=== PATIENT | male | born 1950 | race Caucasian/White ===

== ENCOUNTER 2023-05-22 06:52 | Day surgery (SDC) | payer MEDICARE, SELFPAY ==
[2023-05-18 12:54] VITALS: BMI 25.0
--- NOTE | 2023-05-21 11:42 | P.CONAN_ITS ---
Documented by User: Margie Way NP 05/21/23 11:42 HPI - Anesthesia Eval Consult details Narrative: 73yo M for Colonoscopy [facility] Past Medical History Medical History (Updated 05/22/23 @ 07:20 by Rita Newton RN) History of eye disorder Prostate cancer Irregular heartbeat Osteoarthritis Elevated cholesterol Surgical History Surgical History (Updated 05/18/23 @ 12:58 by Guillermina Del Rio, MAURISIO) History of surgery on arm Hx of hernia repair Hx of prostatectomy H/O colonoscopy Social History Social History Patient Tobacco Use Status: Former Tobacco user Use of substances other than those prescribed or required for medical reasons: No Are you DNR?: No Advance Directives: No Advance Directives Information Provided: Yes Meds Allergies Allergy/AdvReac Type Severity Reaction Status Date / Time No Known Allergies Allergy Verified 05/18/23 12:52 Home Medications ?Medication ?Instructions ?Recorded ?Confirmed ?Last Taken ?Type aspirin 81 mg tablet,delayed 81 mg PO DAILY 05/18/23 05/18/23 Unknown History release atenolol 25 mg tablet 25 mg PO DAILY 05/18/23 05/18/23 05/22/23 History cholecalciferol (vitamin D3) 25 25 mcg PO DAILY 05/18/23 05/18/23 Unknown History mcg (1,000 unit) capsule (Vitamin D3) coenzyme Q10 100 mg capsule (Co 100 mg PO DAILY 05/18/23 05/18/23 Unknown History Q-10) multivitamin 1 tab PO QAM 05/18/23 05/18/23 Unknown History simvastatin 40 mg tablet 40 mg PO BEDTIME 05/18/23 05/18/23 Unknown History Exam Height,Weight and Vital Signs: Height 5 ft 9.5 in Weight 78.018 kg Assessment and Plan Assessment Anesthesia Assessment: Chart Reviewed Documented by User: Eliseo No MD 05/22/23 08:22 [facility] Past Medical History Medical History (Updated 05/22/23 @ 07:20 by Rita Lamar, RN) History of eye disorder Prostate cancer Irregular heartbeat Osteoarthritis Elevated cholesterol Family History Family history of problems with anesthesia: No Surgical History Surgical History (Updated 05/18/23 @ 12:58 by Guillermina Del Rio RN) History of surgery on arm Hx of hernia repair Hx of prostatectomy H/O colonoscopy History of Problems with Anesthesia: No Social History Social History Patient Tobacco Use Status: Former Tobacco user Use of substances other than those prescribed or required for medical reasons: No Are you DNR?: No Advance Directives: No Advance Directives Information Provided: Yes Meds Allergies Allergy/AdvReac Type Severity Reaction Status Date / Time No Known Allergies Allergy Verified 05/18/23 12:52 Home Medications ?Medication ?Instructions ?Recorded ?Confirmed ?Last Taken ?Type aspirin 81 mg tablet,delayed 81 mg PO DAILY 05/18/23 05/18/23 Unknown History release atenolol 25 mg tablet 25 mg PO DAILY 05/18/23 05/18/23 05/22/23 History cholecalciferol (vitamin D3) 25 25 mcg PO DAILY 05/18/23 05/18/23 Unknown History mcg (1,000 unit) capsule (Vitamin D3) coenzyme Q10 100 mg capsule (Co 100 mg PO DAILY 05/18/23 05/18/23 Unknown History Q-10) multivitamin 1 tab PO QAM 05/18/23 05/18/23 Unknown History simvastatin 40 mg tablet 40 mg PO BEDTIME 05/18/23 05/18/23 Unknown History Exam Airway Mallampati Class: II TM Dist: >3cm Neck ROM: Full Loose/Missing/Broken Teeth: No Heart: [id number]+[id number] Lungs: cta b/l Assessment and Plan Assessment Anesthesia Assessment: Anesthesia Plan Discussed Final Anesthetic Review Family History of Problems with Anesthesia: No History of Problems with Anesthesia: No NPO: Yes ASA Class: II Final Preanesthetic Review: No Changes in Pt Med Stat, Meds/Allgs Chart Reviewed, Consent Obtained/Reviewed and Anes Risks/Benef Reviewed Patient Risk: Intermediate Procedure Risk: Low Assessment/Block/Sedation in SS: Assess/Block/Sedation-SS Anesthetic Plan Anesthetic Plan: MAC: Disposition: Standard PACU
[2023-05-22 07:21] VITALS: BMI 26.5
[2023-05-22 07:26] VITALS: BP 145/85; PULSE 70; RESP 16; TEMP 36.4; O2SAT 97
[2023-05-22] MEDS: Lactated Ringers 1,000 ML 100 ML IVCONT (07:37)
--- NOTE | 2023-05-22 08:30 | MHC.SHP ---
Pre-Procedural Eval Section A - 24 Hr Update-Section A only Date of Service: 05/22/23 Section B - Complete if H&P > 30 days Chief Complaint: screening Details of Present Illness: see H&P no changes Relevant Family History (Specify if Yes): No Relevant Social History: None Present Medications: see Short Stay Collaborative assessment Medical History: No relevant PMH History of Previous Operations: No relevant previous surgery Allergies: Allergies Allergy/AdvReac Type Severity Reaction Status Date / Time No Known Allergies Allergy Verified 05/18/23 12:52 Review of Systems Sugical H&P ROS: Negative: Constitution, Cardiovascular, Respiratory, Neurological, Psychiatric, Hem-Onc, Allergic/Immunologic, Gastrointestinal, Genitourinary, Musculoskeletal, Integumentary, Endocrine and Eyes/Ears/Nose/Throat Exam Surgical H&P Exam: Normal: HEENT, Normal: Heart, Normal: Lungs, Normal: Extremities, Normal: Abdomen, Normal: Skin and Normal: Neurological Plan Diagnosis/Plan: Unchanged I have reviewed the history and physical and performed a pertinent physical examination on my patient. No changes have occurred unless specified. Time Spent With Patient Time: Total time managing care of this patient today ____ minutes.
[2023-05-22 09:08] VITALS: BP 113/64; PULSE 69; RESP 16; TEMP 36.1; O2SAT 98
[2023-05-22 09:23] VITALS: BP 112/67; PULSE 65; RESP 20; TEMP 36.3; O2SAT 97
--- NOTE | 2023-05-22 20:39 | OP_ITS ---
DATE OF SERVICE: 05/22/2023 SURGEON: Ethan Pickard MD INDICATIONS: Colon cancer screening. PREOPERATIVE DIAGNOSIS: POSTOPERATIVE DIAGNOSIS: PROCEDURE PERFORMED: Colonoscopy to the terminal ileum with snare polypectomy and biopsy. ESTIMATED BLOOD LOSS: COMPLICATIONS: ANESTHESIA: Monitored anesthesia care. ASSISTANTS: SPECIMENS: DESCRIPTION OF PROCEDURE: A history and physical performed, the risks and benefits of the procedure were explained to the patient. Informed consent was obtained. The patient placed in the left lateral decubitus position. A digital rectal exam was performed and was found to be normal. The Olympus pediatric video colonoscope was introduced into the rectum and advanced to the cecum. The cecum was identified by transillumination, palpation, and identification of ileocecal valve. Examination was performed. The scope was removed. He tolerated the procedure well and was returned to the recovery room in stable condition. FINDINGS: The terminal ileum was examined and appeared normal. The visualized colonic mucosa was within normal limits without evidence of masses or ulcers. A single polyp was identified and removed with a snare. The polyp was recovered via suction. This was located at 50 cm from the anal verge. No other polyps were identified. There was moderate sigmoid diverticulosis. Retroflexed examination showed moderate-sized internal hemorrhoids. IMPRESSION: Colon polyp. RECOMMENDATION: Follow up the biopsy results. MD CHRISTINA Chiu/SIRENA / [id number]
== END 2023-05-22 10:10 | disposition home or self-care (01) ==
PROVIDERS: PCP Internal Medicine; Visit Provider Internal Medicine Gastroenterology
PROC: 0DJD8ZZ Inspection of Lower Intestinal Tract, Via Natural or Artificial Opening Endoscopic (ICD-10-PCS; CPT 45378; principal; 2023-05-22 08:40)
DX: Z12.11 Encounter for screening for malignant neoplasm of colon (principal); Z86.010 Personal history of colon polyps; K63.5 Polyp of colon; K57.30 Diverticulosis of large intestine without perforation or abscess without bleeding; K64.8 Other hemorrhoids; I49.9 Cardiac arrhythmia, unspecified; E78.5 Hyperlipidemia, unspecified; H57.89 Other specified disorders of eye and adnexa; Z85.46 Personal history of malignant neoplasm of prostate; Z87.891 Personal history of nicotine dependence; Z79.899 Other long term (current) drug therapy
CPT/HCPCS: 45385; 45380; 88305; J0461; J2704

== ENCOUNTER 2023-07-20 11:02 | Emergency (ER) | payer MEDICARE, SELFPAY ==
[2023-07-20 11:07] VITALS: BP 174/87; PULSE 52; RESP 16; TEMP 36.2; O2SAT 97; BMI 26.5
[2023-07-20 11:45] LABS: MANUAL DIFF FLAG NO
[2023-07-20 11:54] LABS: Basophils Percent Auto 0.6 % (0-2); Eosinophils Absolute Auto 0.1 X10*3/uL (0.0-0.4); Eosinophils Percent Auto 1.8 % (0-4); Hemoglobin 13.5 g/dl (14.0-18.0); Imm Gran Abs Auto 0.02 X10*3/uL (0.00-0.03); Imm Gran Pct Auto 0.4 % (0.0-0.4); Lymphocytes Absolute Auto 0.9 X10*3/uL (1.2-4.9); Mean Corpuscular HGB Conc 33.8 g/dl (31.0-36.0); Mean Corpuscular Hemoglobin 31.7 pg (27.0-33.0); Mean Corpuscular Volume 93.9 fL (80.0-98.0); Mean Platelet Volume 9.3 fL (9.4-12.4); Monocytes Absolute Auto 0.6 X10*3/uL (0.1-1.2); Monocytes Percent Auto 11.5 % (2-11); Neutrophils Absolute Auto 3.5 x10*3/uL (2.0-8.3); Neutrophils Percent Auto 68.7 % (45-73); Platelet Count 210 X10*3/uL (160-400); Red Blood Count 4.26 X10*6/uL (4.60-5.80); Red Cell Distribution Width 12.6 % (11.0-16.0); White Blood Count 5.1 X10*3/uL (4.8-10.8)
[2023-07-20 12:02] LABS: Alanine Aminotransferase 23 U/L (0-40); Albumin Level 4.2 g/dL (3.5-5.0); Alkaline Phosphatase 54 U/L (39-117); Anion Gap 11 (12-20); Aspartate Amino Transferase 31 U/L (5-37); Bilirubin Total 0.6 mg/dL (0.0-1.0); Blood Urea Nitrogen 20 mg/dL (9-16); Calcium 9.6 mg/dL (8.4-10.2); Carbon Dioxide 30 mmol/L (22-29); Chloride 107 mmol/L (96-108); Creatinine Clr Calc Pharmacy 55.1; Estimated Glomerular Filt Rate > 60; Glucose Random 95 mg/dL (60-115); Sodium 144 mmol/L (135-145); Total Protein 6.8 g/dL (6.5-8.0)
[2023-07-20 17:35] VITALS: BP 186/93; PULSE 55; RESP 12; TEMP 36.6; O2SAT 98
--- NOTE | 2023-07-20 17:37 | ECG_ITS ---
Test Reason : TACHYCARDIA Blood Pressure : / mmHG Vent. Rate : 049 BPM Atrial Rate : 049 BPM P-R Int : 156 ms QRS Dur : 122 ms QT Int : 410 ms P-R-T Axes : 037 -27 -13 degrees QTc Int : 370 ms Sinus bradycardia Left ventricular hypertrophy with QRS widening ( R in aVL , [place] product ) Abnormal ECG When compared with ECG of 17-AUG-2004 08:32, QRS duration has increased T wave amplitude has decreased in Anterior leads Referred By: Generic ED Physician Electronically Signed By:IZABELA FLEMING MD
--- NOTE | 2023-07-20 18:31 | ED_ITS ---
HPI - GI Bleed General Chief complaint: GI Bleed Stated complaint: rectal bleeding Time Seen by Provider: 07/20/23 17:42 Source: patient Mode of arrival: ambulatory Limitations: no limitations History of Present Illness ED Provider: marita WILLIAMSON Narrative: Patient has remote history of hemorrhoids had colonoscopy about 2 months ago which was negative except for benign polyp today had soft bowel movement followed by bright red blood no abdominal pain no history of similar bleed in the past not on any anticoagulation Related Data Home Medications ?Medication ?Instructions ?Recorded ?Confirmed aspirin 81 mg tablet,delayed 81 mg PO DAILY 05/18/23 05/18/23 release atenolol 25 mg tablet 25 mg PO DAILY 05/18/23 05/18/23 cholecalciferol (vitamin D3) 25 25 mcg PO DAILY 05/18/23 05/18/23 mcg (1,000 unit) capsule (Vitamin D3) coenzyme Q10 100 mg capsule (Co 100 mg PO DAILY 05/18/23 05/18/23 Q-10) multivitamin 1 tab PO QAM 05/18/23 05/18/23 simvastatin 40 mg tablet 40 mg PO BEDTIME 05/18/23 05/18/23 Previous Rx's ?Medication ?Instructions ?Recorded hydrocortisone acetate 25 mg 25 mg [place] BID #12 ea 07/20/23 rectal suppository (Anusol-HC) Allergies Allergy/AdvReac Type Severity Reaction Status Date / Time No Known Allergies Allergy Verified 07/20/23 11:08 Review of Systems 2 Review of Systems: Yes all other systems are reviewed and are negative PMFSH Past Medical History Medical History History of eye disorder Prostate cancer Irregular heartbeat Osteoarthritis Elevated cholesterol Surgical History History of surgery on arm Hx of hernia repair Hx of prostatectomy H/O colonoscopy Social History Social History Patient Tobacco Use Status: Former Tobacco user Smoked in Last 30 Days: No Use of substances other than those prescribed or required for medical reasons: No Advance Directives: No Advance Directives Information Provided: No Physical Exam 2 Vital Signs: Vital Signs: Last Vital Signs Temp 97.6 F 07/20/23 19:30 Pulse 55 07/20/23 19:30 Resp 16 07/20/23 19:30 BP 181/87 H 07/20/23 19:30 Pulse Ox 97 07/20/23 19:30 O2 Del Method Room Air 07/20/23 19:30 BMI result Body Mass Index 26.5 Appearance: Alert. Oriented X3. No acute distress. Eyes: PERRLA, No Nystagmus ENT: Pharynx normal. Oral Mucosa moist Neck: Normal inspection. Neck supple. CVS: Normal heart rate and rhythm. Pulses normal. Respiratory: No respiratory distress. Equal air entry bilateral, no wheezing/rales/rhonchi Abdomen: Soft and nontender. Bowel sounds are present, no mass palpable, no CVA tenderness rectal: Trace bright red blood guaiac positive hemorrhoid palpable Skin: Skin warm and dry. Normal skin color. Normal skin turgor. Extremities: No lower extremity edema. No calf tenderness Neuro: Oriented X 3. No motor deficit. Medical Decision Making Medical Decision Making [facility] Narrative: Patient with minor bright red blood per rectum no active bleed at this time serial H&H stable patient just had a colonoscopy 2 months ago which had only a small polyp. Will discharge patient home advised to follow with GI if bleeding continues and avoid straining Differential Diagnosis Differential Diagnoses: The differential diagnosis associated with the presentation includes Lab Data [facility] Lab Attestation statement: I reviewed the patient's lab results. 07/20/23 18:27 07/20/23 11:39 Labs: Lab Results 07/20/23 07/20/23 Range/Units 11:39 18:27 WBC 5.1 (4.8-10.8) X10*3/uL RBC 4.26 L (4.60-5.80) X10*6/uL Hgb 13.5 L 13.7 L (14.0-18.0) g/dl Hct 40.0 L 39.7 L (42.0-52.0) % MCV 93.9 (80.0-98.0) fL MCH 31.7 (27.0-33.0) pg MCHC 33.8 (31.0-36.0) g/dl RDW 12.6 (11.0-16.0) % Plt Count 210 (160-400) X10*3/uL MPV 9.3 L (9.4-12.4) fL Immature Gran % (Auto) 0.4 (0.0-0.4) % Neut % (Auto) 68.7 (45-73) % Lymph % (Auto) 17.0 L (20-40) % [place] % (Auto) 11.5 H (2-11) % Eos % (Auto) 1.8 (0-4) % Baso % (Auto) 0.6 (0-2) % Lymph # (Auto) 0.9 L (1.2-4.9) X10*3/uL [place] # (Auto) 0.6 (0.1-1.2) X10*3/uL Eos # (Auto) 0.1 (0.0-0.4) X10*3/uL Baso # (Auto) 0.0 (0.0-0.2) X10*3/uL Abs Immat Gran (auto) 0.02 (0.00-0.03) X10*3/uL Absolute Neuts (auto) 3.5 (2.0-8.3) x10*3/uL Absolute Nucleated RBC 0.000 (0.0-0.012) X10*3/uL Nucleated RBC % (auto) 0.0 (0.0-0.2) /100WBC PT 12.2 (11.1-13.3) SEC INR 1.0 (0.9-1.1) Sodium 144 (135-145) mmol/L Potassium 4.0 (3.3-5.1) mmol/L Chloride 107 (96-108) mmol/L Carbon Dioxide 30 H (22-29) mmol/L Anion Gap 11 L (12-20) BUN 20 H (9-16) mg/dL Creatinine 1.12 (0.5-1.4) mg/dL Estim Creat Clear Calc 55.1 Estimated GFR > 60 Random Glucose 95 (60-115) mg/dL Calcium 9.6 (8.4-10.2) mg/dL Total Bilirubin 0.6 (0.0-1.0) mg/dL AST 31 (5-37) U/L ALT 23 (0-40) U/L Alkaline Phosphatase 54 (39-117) U/L Total Protein 6.8 (6.5-8.0) g/dL Albumin 4.2 (3.5-5.0) g/dL Discharge Plan Discharge Clinical Impression: Lower gastrointestinal hemorrhage Patient Disposition: Home, Self-Care Instructions: Gastrointestinal Bleeding (ED) Additional Instructions: Likely you have hemorrhoidal bleed which seems to be stable Do not over exert when moving your bowels Anusol suppository twice daily until heals completely Report to the ER if worsening of the bleed Follow up with GI Prescriptions: New hydrocortisone acetate [Anusol-HC] 25 mg suppository 25 mg [place] BID Qty: 12 0RF No Action multivitamin Tablet 1 tab PO QAM atenolol 25 mg tablet 25 mg PO DAILY aspirin [Aspir-81] 81 mg Tablet,Delayed Release (Dr/Ec) 81 mg PO DAILY simvastatin 40 mg tablet 40 mg PO BEDTIME cholecalciferol (vitamin D3) [Vitamin D3] 25 mcg (1,000 unit) Capsule 25 mcg PO DAILY coenzyme Q10 [Co Q-10] 100 mg Capsule 100 mg PO DAILY Interventions: ED Discharge Assessment Last Done: 07/20/23 19:30 Discharge Date/Time: 07/20/23 19:31 Print Language: Czech
[2023-07-20 18:32] LABS: Hematocrit 39.7 % (42.0-52.0); Hemoglobin 13.7 g/dl (14.0-18.0)
[2023-07-20 18:42] LABS: Prothrombin Time 12.2 SEC (11.1-13.3)
[2023-07-20 19:30] VITALS: BP 181/87; PULSE 55; RESP 16; TEMP 36.4; O2SAT 97
== END 2023-07-20 19:31 | disposition home or self-care (01) ==
PROVIDERS: Emergency Provider Internal Medicine; PCP Internal Medicine
DX: K92.2 Gastrointestinal hemorrhage, unspecified (principal); R00.0 Tachycardia, unspecified; R00.1 Bradycardia, unspecified; Z87.891 Personal history of nicotine dependence; Z79.899 Other long term (current) drug therapy
CPT/HCPCS: 36415; 80053; 85014; 85018; 85025; 85610; 93005; 99283; 99284

== ENCOUNTER → 2023-07-20 17:37 | Outpatient (BNV) | payer MEDICARE, SELFPAY | PROVIDERS: Emergency Provider Internal Medicine; PCP Internal Medicine; Visit Provider Internal Medicine Cardiovascular Disease | DX: R00.0 Tachycardia, unspecified (principal) | CPT/HCPCS: 93010 ==